=== PATIENT | male | born 1985 | race Caucasian/White ===

== ENCOUNTER 2023-03-01 15:15 | Outpatient (CLI) | payer OTHER ==
--- NOTE | 2023-03-01 20:55 | XRAY Report ---
PROCEDURE: Foot 3 View LT INDICATIONS: LEFT FOOT LACERATION TECHNIQUE: 3 views of the foot were acquired. COMPARISON: None. FINDINGS: Bones: No fractures or dislocations. No suspicious bony lesions. Soft tissues: No suspicious soft tissue calcifications or masses. No radiopaque foreign body. IMPRESSION: No acute bony abnormality. No radiopaque foreign body. Reviewed by: Alyssa Newman MD on 03/01/2023 8:53 PM PST Approved by: Alyssa Newman MD on 03/01/2023 8:53 PM [facility] Station ID: [id number]
== END 2023-03-01 15:30 | disposition home or self-care (01) ==
LOC: DI.N 15:15
PROVIDERS: ATTEND Physician Assistant Medical
DX: S91.312A Laceration without foreign body, left foot, initial encounter (principal); S99.922A Unspecified injury of left foot, initial encounter